=== PATIENT | male | born 1965 | race American Indian/Alaskan Native ===

== ENCOUNTER 2016-10-05 09:18 | Emergency (ER) | payer OTHER ==
[2016-10-05 09:58] VITALS: RESP 18; TEMP 99.6; O2SAT 96
[2016-10-05 10:08] VITALS: BMI 24.3
--- NOTE | 2016-10-05 10:11 | ED PDOC ---
Arrival/HPI - General Historian: Patient - History of Present Illness Time/Duration: Other (~17 hours) Symptom Onset: Sudden Symptom Course: Unchanged Quality: Throbbing Severity Level: 3 Activities at Onset: Other (grilling) Context: Home - General Chief Complaint: Abnormal Skin Integrity Time Seen by Provider: 10/05/16 10:10 - History of Present Illness Narrative History of Present Illness (Text): 50 M with PMH of HTN presents to ED with complaint of LLE laceration. Patient states it happened yesterday late afternoon while grilling. He bumped his leg on the grill grate that was on the ground and noticed he was bleeding. Patient rates pain 3-4/10. He describes it as a constant throbbing pain. Denies fever/ chills, cp, sob, abd pain, n/v/d. Tetatanus status unknown. (Lb Betts) Past Medical History - Provider Review Nursing Documentation Reviewed: Yes - Travel History Have you recently traveled outside [place] w/in the past 3 mons?: No - Cardiac Hx Cardiac Disorders: Yes Hx Hypertension: Yes - Pulmonary Hx Respiratory Disorders: No - Neurological Hx Neurological Disorder: No - HEENT Hx HEENT Disorder: No - Renal Hx Renal Disorder: No - Endocrine/Metabolic Hx Endocrine Disorders: No - Hematological/Oncological Hx Blood Disorders: No - Integumentary Hx Dermatological Disorder: No - Musculoskeletal/Rheumatological Hx Musculoskeletal Disorders: No - Gastrointestinal Hx Gastrointestinal Disorders: No - Genitourinary/Gynecological Hx Genitourinary Disorders: No - Psychiatric Hx Psychophysiologic Disorder: No Hx Substance Use: No - Surgical History Hx Tonsillectomy: Yes Other/Comment: Left knee. adenoidectomy Family/Social History - Physician Review Nursing Documentation Reviewed: Yes Family/Social History: Unknown Family HX Smoking Status: Never Smoked Hx Alcohol Use: Yes Hx Substance Use: No Allergies/Home Meds Allergies/Adverse Reactions: Allergies No Known Allergies Allergy (Verified 10/05/16 12:14) Home Medications: Home Meds Medication Instructions Recorded Confirmed hydroCHLOROthiazide [Microzide] 12.5 mg PO DAILY 10/05/16 10/05/16 Review of Systems - Review of Systems Constitutional: absent: Fatigue, Weight Change, Night Sweats Eyes: absent: Vision Changes, Photophobia, Eye Pain ENT: absent: Hearing Changes, Tinnitus Respiratory: absent: SOB, Cough, Sputum, Wheezing Cardiovascular: absent: Chest Pain, Palpitations Gastrointestinal: absent: Abdominal Pain, Constipation, Diarrhea, Nausea, Vomiting, Appetite Changes, Hematochezia, Hematemesis Genitourinary Male: absent: Dysuria, Frequency, Hematuria Musculoskeletal: absent: Arthralgias, Back Pain, Neck Pain, Joint Swelling Skin: Laceration (LLE 6 cm laceration, mutiple abrasions) Physical Exam Vital Signs Reviewed: Yes Temperature: Afebrile Blood Pressure: Normal Pulse: Regular Respiratory Rate: Normal Appearance: Positive for: Well-Appearing, Non-Toxic, Comfortable Pain Distress: Mild Mental Status: Positive for: Alert and Oriented X 3 - Systems Exam Head: Present: Atraumatic, Normocephalic Respiratory/Chest: Present: Clear to Auscultation, Good Air Exchange Cardiovascular: Present: Regular Rate and Rhythm, Normal S1, S2, Peripheal Pulses Present Lower Extremity: Present: NORMAL PULSES, Neurovascularly Intact, Capillary Refill < 2 s Neurological: Present: GCS=15 Skin: Present: Warm, Dry, Normal Color, Laceration (LLE 6 cm (anterior)), Abrasion (2 abrasions near laceration) Psychiatric: Present: Alert, Oriented x 3 Medical Decision Making ED Course and Treatment: Even though injury occurred more than 12 hours, patient is young, healthy, and nondiabetic. Six 4-0 polyamide sutures were placed in LLE. Bacitracin applied. Patient given TDAP vaccine. Rx for Bactrim to be taken for 7 days. Patient instructed to follow up with PMD or ED for suture removal in 7-10 days. ( Lb Betts) Patient seen and examined with resident Came up with treatment and disposition plan with resident (Eddi Hemphill) - Medication Orders Current Medication Orders: Discontinued Medications Lidocaine HCl (Lidocaine 1% (20ml)) Confirm Administered Dose 20 ml .ROUTE .STK- MED ONE Stop: 10/05/16 10:50 Tetanus/Reduced Diphtheria/Acell Pertussis (Boostrix Vaccine Inj) 0.5 ml IM .ONCE ONE Stop: 10/05/16 10:28 Last Admin: 10/05/16 11:20 Dose: 0.5 ml - Procedure PROCEDURE NOTE (Text): PROCEDURE: LACERATION REPAIR Performed by the emergency provider Location: Anterior lower leg, LLE Length: 6 cm Description: clean wound edges,no foreign bodies Distal CMS: Normal. No deficits. Neurovascularly intact. Anesthesia: Lidocaine 1% Preparation: The wound was cleaned with NS and Betadyne. The area was prepped and draped in the usual sterile fashion. Exploration: The wound was explored and no foreign bodies were found. Procedure: The wound was closed with 4-0 polyamide.~ There was appropriateapproximation. In total, 6 were used. Post-Procedure: Good closure and hemostasis. The patient tolerated the procedure well and there were no complications. Post procedure dressing applied. (Lb Betts) - PA / [employer]LECTRIC [employer]GAN [employer]ER / Resident Statement / has reviewed & agrees with the documentation as recorded. MD/ has examined the patient and agrees with the treatment plan. Disposition/Present on Arrival - Present on Arrival Any Indicators Present on Arrival: No History of DVT/PE: No History of Uncontrolled Diabetes: No Urinary Catheter: No History of Decub. Ulcer: No History Surgical Site Infection Following: None - Disposition Have Diagnosis and Disposition been Completed?: Yes Disposition Time: 11:15 Patient Plan: Discharge - Disposition Diagnosis: Laceration Disposition: HOME/ ROUTINE Condition: GOOD Discharge Instructions (ExitCare): Care For Your Stitches (ED), Laceration (ED) Additional Instructions: Thank you for letting us take care of you today. Your provider was Dr. Betts. You were treated for Leg Laceration. The emergency medical care you received today was directed at your acute symptoms. If you were prescribed any medication, please fill it and take as directed. It may take several days for your symptoms to resolve. Return to the Emergency Department if your symptoms worsen, do not improve, or if you have any other problems. Please contact your doctor or call one of the physicians/clinics you have been referred to that are listed on the Patient Visit Information form that is included in your discharge packet. Bring any paperwork you were given at discharge with you along with any medications you are taking to your follow up visit. Our treatment cannot replace ongoing medical care by a primary care provider (PCP) outside of the emergency department. Thank you for allowing the [facility] team to be part of your care today. If you had an X-Ray or CT scan: A Radiologist will review the ED reading if any change in treatment is needed we will contact you. If you had a blood, urine, or wound culture: It will take several days for the results, if any change in treatment is needed we will contact you. If you had an STI test: It will take 48 hours for the results. Please call after 1 week if you have not heard back. Take Bactrim DS by mouth twice per day for 7 days Keep are clean and dry Follow up with PMD or ED for suture removal in 7-10 days Please return to ED if symptoms persist or condition worsens Referrals: Anthony Jackson MD [Staff Provider] - Follow up with primary
[2016-10-05] MEDS ORDERED: TDAP Vaccine 0.5 mL Syr IM ONE (10:27)
[2016-10-05] MEDS ORDERED: Lidocaine 1% Inj (20ml) ONE (10:49)
[2016-10-05 12:11] VITALS: BP 135/79; PULSE 85
== END 2016-10-05 12:13 | disposition home or self-care (01) ==
LOC: ED 09:18
DX: S81.812A Laceration without foreign body, left lower leg, initial encounter (principal); W22.8XXA Striking against or struck by other objects, initial encounter; Y93.G2 Activity, grilling and smoking food; I10 Essential (primary) hypertension; Z23 Encounter for immunization

== ENCOUNTER 2016-10-12 06:42 | Emergency (ER) | payer OTHER ==
[2016-10-12 06:43] VITALS: BMI 33.0
[2016-10-12 07:02] VITALS: BP 99/54; PULSE 91; RESP 18; TEMP 98.9; O2SAT 99
--- NOTE | 2016-10-12 07:16 | ED PDOC ---
Arrival/HPI - General Chief Complaint: Suture/Staple Removal Time Seen by Provider: 10/12/16 07:06 Historian: Patient - History of Present Illness Narrative History of Present Illness (Text): 10/12/16 07:10 Betito Fletcher is a 50 year old male who presents to the emergency department for suture removal. Patient came to emergency department about a week ago with a laceration to his left lower extremity and received 6 stitches. Patient also received a tetanus shot and was discharged with antibiotics. At present, Patient states that he has kept up with his prescribed antibiotics with no discomfort to his wound. Patient denies any fevers, discharge, or any other complaint at this time. Time/Duration: 1 week Symptom Onset: Sudden Symptom Course: Resolved Activities at Onset: Light Context: Home Past Medical History - Provider Review Nursing Documentation Reviewed: Yes - Cardiac Hx Cardiac Disorders: Yes Hx Hypertension: Yes - Pulmonary Hx Respiratory Disorders: No - Neurological Hx Neurological Disorder: No - HEENT Hx HEENT Disorder: No - Renal Hx Renal Disorder: No - Endocrine/Metabolic Hx Endocrine Disorders: No - Hematological/Oncological Hx Blood Disorders: No - Integumentary Hx Dermatological Disorder: No - Musculoskeletal/Rheumatological Hx Musculoskeletal Disorders: No - Gastrointestinal Hx Gastrointestinal Disorders: No - Genitourinary/Gynecological Hx Genitourinary Disorders: No - Psychiatric Hx Psychophysiologic Disorder: No Hx Substance Use: No - Surgical History Hx Tonsillectomy: Yes Other/Comment: Left knee. adenoidectomy Family/Social History - Physician Review Nursing Documentation Reviewed: Yes Family/Social History: No Known Family HX Smoking Status: Never Smoked Hx Alcohol Use: Yes Frequency of alcohol use: Socially Hx Substance Use: No Allergies/Home Meds Allergies/Adverse Reactions: Allergies No Known Allergies Allergy (Verified 10/12/16 06:53) Home Medications: Home Meds Medication Instructions Recorded Confirmed hydroCHLOROthiazide [Microzide] 25 mg PO DAILY 10/05/16 10/12/16 Review of Systems - Physician Review All systems were reviewed & negative as marked: Yes - Review of Systems Constitutional: absent: Fevers, Night Sweats Eyes: absent: Vision Changes ENT: absent: Hearing Changes Respiratory: absent: SOB Cardiovascular: absent: Chest Pain Gastrointestinal: absent: Abdominal Pain Genitourinary Male: absent: Dysuria Musculoskeletal: absent: Arthralgias Skin: Laceration (Stitched laceration to lower LE). absent: Rash Neurological: absent: Headache Endocrine: absent: Diaphoresis Hemo/Lymphatic: absent: Adenopathy Psychiatric: absent: Anxiety Physical Exam Vital Signs Reviewed: Yes Vital Signs Temp Pulse Resp BP Pulse Ox 10/12/16 07:01 98.9 F 91 H 18 99/54 L 99 Temperature: Afebrile Blood Pressure: Hypotensive Pulse: Tachycardic Respiratory Rate: Normal Appearance: Positive for: Well-Appearing, Non-Toxic, Comfortable Pain Distress: None Mental Status: Positive for: Alert and Oriented X 3 - Systems Exam Head: Present: Atraumatic, Normocephalic Pupils: Present: PERRL Extroacular Muscles: Present: EOMI Conjunctiva: Present: Normal Mouth: Present: Moist Mucous Membranes Neck: Present: Normal Range of Motion Abdomen: No: Peritoneal Signs Lower Extremity: Present: NORMAL PULSES, Normal ROM. No: Edema, CALF TENDERNESS , Deformity Neurological: Present: GCS=15, Speech Normal Skin: Present: Laceration (to lower left extremity; no erythema; wound intact; [address]) Psychiatric: Present: Alert, Oriented x 3, Normal Insight, Normal Concentration Medical Decision Making ED Course and Treatment: 10/12/16 07:10 Impression: 50 year old male presents to the emergency department for suture removal. Plan: -- Suture Removal -- Discharge Prior Visits: Notes and results from previous visits were reviewed. Patient last seen in the ED on 10/05/16 for LLE laceration. Patient was discharged home. Progress Notes: 10/12/16 07:11 PROCEDURE: SUTURE REMOVAL Performed by the emergency provider Location: Anterior lower leg, LLE Length: 6 cm Distal CMS: Normal. No deficits. Neurovascularly intact. Preparation: The wound was cleaned with NS and Betadyne. The area was prepped and draped in the usual sterile fashion. Procedure: In total, 6 sutures were removed. Post-Procedure: Good closure and hemostasis. The patient tolerated the procedure well and there were no complications. CSM remains intact. - Scribe Statement The provider has reviewed the documentation as recorded by the Hireniblove Fonseca Provider Scribe Attestation: All medical record entries made by the Scribe were at my direction and personally dictated by me. I have reviewed the chart and agree that the record accurately reflects my personal performance of the history, physical exam, medical decision making, and the department course for this patient. I have also personally directed, reviewed, and agree with the discharge instructions and disposition. Disposition/Present on Arrival - Present on Arrival Any Indicators Present on Arrival: No History of DVT/PE: No History of Uncontrolled Diabetes: No Urinary Catheter: No History of Decub. Ulcer: No History Surgical Site Infection Following: None - Disposition Have Diagnosis and Disposition been Completed?: Yes Diagnosis: Visit for suture removal Disposition: HOME/ ROUTINE Disposition Time: 07:11 Condition: GOOD Additional Instructions: Return to ED if condition worsens. Warm water and soap to laceration. Forms: [facility] [employer] (Bulgarian)
== END 2016-10-12 07:15 | disposition home or self-care (01) ==
LOC: ED 06:42
DX: Z48.02 Encounter for removal of sutures (principal)

== ENCOUNTER 2017-02-12 07:30 | Emergency (ER) | payer OTHER ==
[2017-02-12 07:35] VITALS: BMI 23.6
[2017-02-12 07:41] VITALS: TEMP 99.3
[2017-02-12] MEDS ORDERED: Sodium Chloride 0.9% 1,000 ML IV STA (07:51)
--- NOTE | 2017-02-12 07:56 | ED PDOC ---
Arrival/HPI - General Time Seen by Provider: 02/12/17 07:30 Historian: Patient - History of Present Illness Narrative History of Present Illness (Text): 02/12/17 07:52 A 51 year old male with no significant past medical history, presents to the emergency department with sudden onset vomiting, diarrhea, and generalized weakness this morning. The patient states that he has been feeling diaphoretic and experiencing chills. The patient notes that he received his influenza vaccine this year. The patient denies fevers, headache, dizziness, chest pain, shortness of breath, dyspnea on exertion, cough, abdominal pain, nausea, back pain, neck pain, urinary/bowel changes, or any other complaint. Time/Duration: Other (This Morning) Symptom Onset: Sudden Symptom Course: Unchanged Activities at Onset: Light Context: Home Past Medical History - Provider Review Nursing Documentation Reviewed: Yes - Cardiac Hx Cardiac Disorders: Yes Hx Hypertension: Yes - Pulmonary Hx Respiratory Disorders: No - Neurological Hx Neurological Disorder: No - HEENT Hx HEENT Disorder: No - Renal Hx Renal Disorder: No - Endocrine/Metabolic Hx Endocrine Disorders: No - Hematological/Oncological Hx Blood Disorders: No - Integumentary Hx Dermatological Disorder: No - Musculoskeletal/Rheumatological Hx Musculoskeletal Disorders: No - Gastrointestinal Hx Gastrointestinal Disorders: No - Genitourinary/Gynecological Hx Genitourinary Disorders: No - Psychiatric Hx Psychophysiologic Disorder: No Hx Substance Use: No - Surgical History Hx Tonsillectomy: Yes Other/Comment: Left knee. adenoidectomy Family/Social History - Physician Review Nursing Documentation Reviewed: Yes Family/Social History: No Known Family HX Smoking Status: Never Smoked Hx Alcohol Use: Yes Hx Substance Use: No Allergies/Home Meds Allergies/Adverse Reactions: Allergies No Known Allergies Allergy (Verified 02/12/17 08:01) Home Medications: Home Meds Medication Instructions Recorded Confirmed No Known Home Med 02/12/17 02/12/17 Review of Systems - Physician Review All systems were reviewed & negative as marked: Yes - Review of Systems ENT: absent: Sore Throat Cardiovascular: absent: Chest Pain Gastrointestinal: Diarrhea, Vomiting. absent: Abdominal Pain, Nausea Genitourinary Male: absent: Urinary Output Changes Musculoskeletal: absent: Back Pain, Neck Pain Neurological: Other (Generalized Weakness). absent: Headache, Dizziness Physical Exam Vital Signs Reviewed: Yes Vital Signs Temp Pulse Resp BP Pulse Ox 02/12/17 12:12 98 H 18 144/69 98 02/12/17 09:32 96 H 18 143/89 98 02/12/17 07:30 99.3 F 111 H 20 155/92 H 99 Temperature: Afebrile Blood Pressure: Hypertensive Pulse: Tachycardic Respiratory Rate: Normal Appearance: Positive for: Well-Appearing, Non-Toxic Pain Distress: None Mental Status: Positive for: Alert and Oriented X 3 - Systems Exam Head: Present: Atraumatic, Normocephalic Pupils: Present: PERRL Extroacular Muscles: Present: EOMI Conjunctiva: Present: Normal Mouth: Present: Moist Mucous Membranes Neck: Present: Normal Range of Motion Respiratory/Chest: Present: Clear to Auscultation, Good Air Exchange. No: Respiratory Distress, Accessory Muscle Use Cardiovascular: Present: Regular Rate and Rhythm, Normal S1, S2. No: Murmurs Abdomen: Present: Normal Bowel Sounds. No: Tenderness, Distention, Peritoneal Signs Back: Present: Normal Inspection Upper Extremity: Present: Normal Inspection. No: Cyanosis, Edema Lower Extremity: Present: Normal Inspection. No: Edema Neurological: Present: GCS=15, CN II-XII Intact, Speech Normal Skin: Present: Warm, Dry, Normal Color. No: Rashes Psychiatric: Present: Alert, Oriented x 3, Normal Insight, Normal Concentration Medical Decision Making ED Course and Treatment: 02/12/17 07:57 Impression: A 51 year old male presents to the emergency department with a complaint of sudden onset vomiting, diarrhea, and generalized weakness that began this morning. Plan: -- EKG -- Chest X-ray -- Abdomen/Pelvis CT -- Labs -- Urinalysis -- Tylenol, Zofran, and IV Fluids -- Reassess and disposition Prior Visits: Notes and results from previous visits were reviewed. Patient was last seen in the emergency department on 10/12/2016. The patient was seen in the emergency department for suture removal. The patient was discharged home. Progress Notes: EKG: Ordered, reviewed, and independently interpreted the EKG. Rate : 101 BPM Rhythm : Sinus Tachycardia Interpretation : No St-T wave changes. CHEST X-RAY Dictator : Ginger Trent MD Report Date : 02/12/2017 09:04:25 IMPRESSION: No active pulmonary disease. CT Abdomen and Pelvis with contrast Dictator : Camden Gibbs MD Report Date : 02/12/2017 09:52:37 IMPRESSION: Mildly enlarged prostate. The study is otherwise unremarkable 02/13/17 07:26 pt reassesed sleeping innad. abd soft no ttp. tachycardia resolved. no sirs criteria - Lab Interpretations Lab Results: 02/12/17 08:00 02/12/17 08:00 Lab Results 02/12/17 11:42: Urine Color Yellow, Urine Appearance Clear, Urine pH 8.5, Ur Specific [place] 1.010, Urine Protein Negative, Urine Glucose (UA) Negative, Urine Ketones 15 H, Urine Blood Negative, Urine Nitrate Negative, Urine Bilirubin Negative, Urine Urobilinogen 1.0 H, Ur Leukocyte Esterase Negative 02/12/17 08:50: Influenza Typ A,B (EIA) Negative for flu a/b 02/12/17 08:00: Sodium 139, Potassium 4.5, Chloride 103, Carbon Dioxide 25, Anion Gap 16, BUN 14, Creatinine 1.1, Est GFR ( Amer) > 60, Est GFR (Non- Af Amer) > 60, Random Glucose 109, Calcium 10.3, Magnesium 1.8, Total Bilirubin 1.3, AST 38, ALT 30, Alkaline Phosphatase 63, Lactate Dehydrogenase 416, Total Creatine Kinase 79, Troponin I < 0.01, NT-Pro-B Natriuret Pep 30.4, Total Protein 8.4 H, Albumin 5.0 H, Globulin 3.5, Albumin/Globulin Ratio 1.4, Lipase 91 02/12/17 08:00: PT 10.5, INR 0.96, APTT 31.9, D-Dimer, Quantitative < 200 02/12/17 08:00: WBC 7.7 D, RBC 4.94, Hgb 17.0, Hct 48.1, MCV 97.4, MCH 34.4, MCHC 35.3, RDW 12.5, Plt Count 199, MPV 9.3, Gran % 91.7 H, Lymph % (Auto) 4.6 L , [place] % (Auto) 3.3, Eos % (Auto) 0.3 L, Baso % (Auto) 0.1, Gran # 7.06 H, Lymph # 0.4 L, [place] # 0.3, Eos # 0.0, Baso # 0.01, Neutrophils % (Manual) 92 H, Band Neutrophils % 1, Lymphocytes % (Manual) 5 L, Monocytes % (Manual) 2, Platelet Evaluation Normal I have reviewed the lab results: Yes - RAD Interpretation Radiology Orders: 02/12/17 07:51 CHEST PORTABLE [RAD] Stat 02/12/17 08:57 ABD & PELVIS IV CONTRAST ONLY [CT] Stat - EKG Interpretation Interpreted by ED Physician: Yes Type: 12 lead EKG - Medication Orders Current Medication Orders: Discontinued Medications Acetaminophen (Tylenol 325mg Tab) 975 mg PO STAT STA Stop: 02/12/17 07:51 Last Admin: 02/12/17 08:06 Dose: 975 mg Re-Assess: MAR Pain/Vitals Document 02/12/17 09:06 SRE (Rec: 02/12/17 09:57 SRE [id number]) Pain Reassessment Is This A Pain ReAssessment? Yes Sodium Chloride (Sodium Chloride 0.9%) 1,000 mls @ 999 mls/hr IV .Q1H1M STA Stop: 02/12/17 08:51 Last Admin: 02/12/17 08:01 Dose: 999 mls/hr eMAR Start Stop Document 02/12/17 08:01 SRE (Rec: 02/12/17 08:02 SRE [id number]) Intravenous Solution Start Date 02/12/17 Start Time 08:01 End Date 02/12/17 End time 09:00 Total Infusion Time 59 Ondansetron HCl (Zofran Inj) 4 mg IVP STAT STA Stop: 02/12/17 07:52 Last Admin: 02/12/17 08:06 Dose: 4 mg IVP Administration Document 02/12/17 08:06 SRE (Rec: 02/12/17 08:06 SRE [id number]) Charges for Administration # of IVP Administrations 1 - Scribe Statement The provider has reviewed the documentation as recorded by the Willie Parr Provider Scribe Attestation: All medical record entries made by the Scribe were at my direction and personally dictated by me. I have reviewed the chart and agree that the record accurately reflects my personal performance of the history, physical exam, medical decision making, and the department course for this patient. I have also personally directed, reviewed, and agree with the discharge instructions and disposition. Disposition/Present on Arrival - Present on Arrival Any Indicators Present on Arrival: No History of DVT/PE: No History of Uncontrolled Diabetes: No Urinary Catheter: No History Surgical Site Infection Following: None - Disposition Have Diagnosis and Disposition been Completed?: Yes Diagnosis: Viral syndrome, Vomiting Disposition: HOME/ ROUTINE Disposition Time: 11:00 Condition: STABLE Discharge Instructions (ExitCare): Acute Nausea and Vomiting (ED), Viral Syndrome (ED) Additional Instructions: please follow up with your doctor. return to er with worsening symptoms or concernrs. Referrals: [facility] [Outside] - Follow up with primary [facility] [place]] - Follow up with primary Praveen Apple MD [Staff Provider] - Follow up with primary Forms: [employer] (Samoan)
[2017-02-12 08:08] LABS: BASO # 0.01 K/mm3 (0.0-2.0); BASO % 0.1 % (0.0-3.0); EOS % 0.3 % (1.5-5.0); GRAN # 7.06 (1.4-6.5); GRAN % 91.7 % (50.0-68.0); HEMATOCRIT 48.1 % (42.0-52.0); LYMPH # 0.4 (1.2-3.4); LYMPH % 4.6 % (22.0-35.0); MEAN CELL VOLUME 97.4 fl (80.0-105.0); MEAN CORPUSCULAR HEMOGLOBIN 34.4 pg (25.0-35.0); MEAN CORPUSCULAR HGB CONC 35.3 g/dl (31.0-37.0); MEAN PLATELET VOLUME 9.3 fl (7.0-11.0); MONO # 0.3 (0.1-0.6); MONO % 3.3 % (1.0-6.0); PLATELET COUNT 199 10^3/uL (120.0-450.0); RED CELL DISTRIBUTION WIDTH 12.5 % (11.5-14.5); WHITE BLOOD COUNT 7.7 10^3/ul (4.5-11.0)
[2017-02-12 08:20] LABS: ALB/GLOB RATIO 1.4 (1.1-1.8); ALKALINE PHOSPHATASE 63 U/L (38-126); ALT/SGPT 30 U/L (7-56); AST/SGOT 38 U/L (17-59); BILIRUBIN,TOTAL 1.3 mg/dL (0.2-1.3); BLOOD UREA NITROGEN 14 mg/dL (7-21); CALCIUM 10.3 mg/dL (8.4-10.5); CARBON DIOXIDE 25 mmol/L (21-33); CHLORIDE 103 mmol/L (98-107); GFR AFRICAN-AMERICAN > 60; GLUCOSE,RANDOM 109 mg/dL (70-110); LIPASE 91 U/L (23-300); MAGNESIUM 1.8 mg/dL (1.7-2.2); POTASSIUM 4.5 mmol/L (3.6-5.0); SODIUM 139 mmol/L (132-148); TOTAL PROTEIN 8.4 g/dL (5.8-8.3)
[2017-02-12 08:30] LABS: INR 0.96 (0.93-1.08); PARTIAL THROMBOPLASTIN TIME 31.9 Seconds (25.1-36.5)
[2017-02-12 08:32] LABS: TROPONIN I < 0.01 ng/mL
[2017-02-12 08:35] LABS: BAND 1 % (0-2); NEUTROPHIL 92 % (50.0-70.0)
[2017-02-12 08:36] LABS: PLATELET ESTIMATE NORMAL (NORMAL)
[2017-02-12 08:46] LABS: D DIMER < 200 ng/mL (0-243)
[2017-02-12] MEDS ORDERED: Iohexol 350 MG/100 ML VIAL ONE (09:02)
--- NOTE | 2017-02-12 09:05 | RAD ---
HISTORY: sob COMPARISON: 04/09/2015 FINDINGS: LUNGS: The lungs are well inflated and clear. PLEURA: No significant pleural effusion identified, no pneumothorax apparent. CARDIOVASCULAR: Normal. OSSEOUS STRUCTURES: No significant abnormalities. VISUALIZED UPPER ABDOMEN: Normal. OTHER FINDINGS: None. IMPRESSION: No active pulmonary disease.
[2017-02-12 09:34] VITALS: RESP 18; O2SAT 98
--- NOTE | 2017-02-12 09:54 | CT ---
PROCEDURE: CT Abdomen and Pelvis with contrast HISTORY: abd pain, vomiting COMPARISON: None. TECHNIQUE: Contrast dose: 100 cc of Omni 350 Radiation dose: Total exam DLP = 439 mGy-cm. This CT exam was performed using one or more of the following dose reduction techniques: Automated exposure control, adjustment of the mA and/or kV according to patient size, and/or use of iterative reconstruction technique. FINDINGS: LOWER THORAX: Unremarkable. LIVER: Unremarkable. No gross lesion or ductal dilatation. GALLBLADDER AND BILE DUCTS: Unremarkable. PANCREAS: Unremarkable. No gross lesion or ductal dilatation. SPLEEN: Unremarkable. ADRENALS: Unremarkable. No mass. KIDNEYS AND URETERS: Unremarkable. No hydronephrosis. No solid mass. VASCULATURE: Unremarkable. No aortic aneurysm. BOWEL: Unremarkable. No obstruction. No gross mural thickening. APPENDIX: Normal appendix. PERITONEUM: Unremarkable. No free fluid. No free air. LYMPH NODES: Unremarkable. No enlarged lymph nodes. BLADDER: Unremarkable. REPRODUCTIVE: The prostate is enlarged measuring 67 mm transversely BONES: No acute fracture. OTHER FINDINGS: None. IMPRESSION: Mildly enlarged prostate. The study is otherwise unremarkable
[2017-02-12 11:45] LABS: PH,URINE 8.5 (4.7-8.0); URINE APPEARANCE CLEAR (CLEAR); URINE BILIRUBIN NEGATIVE (NEGATIVE); URINE BLOOD NEGATIVE (NEGATIVE); URINE COLOR YELLOW (YELLOW); URINE GLUCOSE (UA) NEGATIVE (NEGATIVE); URINE KETONE 15 mg/dL (NEGATIVE); URINE LEUKOCYTE ESTERASE NEGATIVE Leu/uL (NEGATIVE); URINE PROTEIN NEGATIVE mg/dL (<30 mg/dL)
[2017-02-12 12:14] VITALS: BP 144/69; PULSE 98
--- NOTE | 2017-02-12 17:34 | CARD ---
APPROVED REPORT EKG Measurement Heart [id number] <Conclusion> Sinus tachycardia Otherwise normal ECG
== END 2017-02-12 12:14 | disposition home or self-care (01) ==
LOC: ED 07:30
DX: B34.9 Viral infection, unspecified (principal); R11.10 Vomiting, unspecified; I10 Essential (primary) hypertension
CPT/HCPCS: 71010; 74177; 80053; 81003; 82550; 83615; 83690; 83735; 83880; 84484; 85025; 85378; 85610; 85730; 87804; 93005; 96361; 96374; 99284; J2405; J7040; Q9967

== ENCOUNTER 2017-08-03 06:56 | Emergency (ER) | payer OTHER ==
[2017-08-03 06:56] VITALS: BMI 33.0
--- NOTE | 2017-08-03 07:28 | ED PDOC ---
Arrival/HPI - General Chief Complaint: Finger,Hand,&Wrist Time Seen by Provider: 08/03/17 07:12 Historian: Patient - History of Present Illness Narrative History of Present Illness (Text): 08/03/17 07:22 Betito Fletcher is a 51 year old male who presents to the emergency department complaining of worsening redness to his left thumb for 5 days and swelling with associated throbbing yesterday. Patient denies any drainage or any other complaints at this time. Time/Duration: < week Symptom Onset: Gradual Symptom Course: Worsening Activities at Onset: Light Context: Home Past Medical History - Provider Review Nursing Documentation Reviewed: Yes - Cardiac Hx Cardiac Disorders: Yes Hx Hypertension: Yes - Pulmonary Hx Respiratory Disorders: No - Neurological Hx Neurological Disorder: No - HEENT Hx HEENT Disorder: No - Renal Hx Renal Disorder: No - Endocrine/Metabolic Hx Endocrine Disorders: No - Hematological/Oncological Hx Blood Disorders: No - Integumentary Hx Dermatological Disorder: No - Musculoskeletal/Rheumatological Hx Musculoskeletal Disorders: No - Gastrointestinal Hx Gastrointestinal Disorders: No - Genitourinary/Gynecological Hx Genitourinary Disorders: No - Psychiatric Hx Psychophysiologic Disorder: No Hx Substance Use: No - Surgical History Hx Orthopedic Surgery: Yes (l knee) Hx Tonsillectomy: Yes Other/Comment: Left knee. adenoidectomy - Anesthesia Hx Anesthesia: Yes Hx Anesthesia Reactions: No Hx Malignant Hyperthermia: No Family/Social History - Physician Review Nursing Documentation Reviewed: Yes Family/Social History: No Known Family HX Smoking Status: Never Smoked Hx Alcohol Use: Yes Frequency of alcohol use: Socially Hx Substance Use: No Allergies/Home Meds Allergies/Adverse Reactions: Allergies No Known Allergies Allergy (Verified 08/03/17 07:51) Review of Systems - Review of Systems Constitutional: absent: Fevers, Night Sweats Eyes: absent: Vision Changes ENT: absent: Hearing Changes Respiratory: absent: SOB, Cough Cardiovascular: absent: Chest Pain, SNYDER Gastrointestinal: absent: Abdominal Pain, Nausea Musculoskeletal: absent: Arthralgias, Back Pain, Neck Pain, Joint Swelling, Myalgias Skin: Cellulitis, Other (Redness and swelling to left thumb) Neurological: absent: Headache, Dizziness, Focal Weakness Endocrine: absent: Diaphoresis Hemo/Lymphatic: absent: Adenopathy Psychiatric: absent: Anxiety, Depression Physical Exam - Physical Exam Narrative Physical Exam (Text): Head: Atraumatic. Eyes: EOMI. Conjunctivae are not pale. ENT: Mucous membranes are moist and intact. Neck: No meningeal signs. Cardiovascular: Regular rate. Regular rhythm. Cap refill less than 2 seconds. Pulmonary/Chest: No evidence of respiratory distress. Extremities: Full range of motion and PIP/DIP/MCP joints of left hand with no ligamentous laxity, no pain with passive or active ROM of the digits Skin: Erythema and edema noted to proximal nail fold, mild swelling of distal first left digit. Erythema does not extend beyond IP joint. No streaking noted. Neurological: Median/radial/ulnar motor and sensory function intact. Psychiatric: Good eye contact. Normal interaction, affect, and behavior. Vital Signs Reviewed: Yes Vital Signs Temp Pulse Resp BP Pulse Ox 08/03/17 07:47 98.9 F 08/03/17 07:45 87 18 178/116 H 100 Temperature: Afebrile Blood Pressure: Hypertensive Pulse: Regular Respiratory Rate: Normal Appearance: Positive for: Well-Appearing, Non-Toxic, Uncomfortable Pain Distress: Moderate Medical Decision Making ED Course and Treatment: 08/03/17 07:29 Impression: 51 year old male complaining of worsening redness to his left thumb for 5 days and swelling with associated throbbing yesterday. Differential Diagnosis included but are not limited to: Cellulitis, paronychia Plan: -- Reassess and disposition Prior Visits: Notes and results from previous visits were reviewed. Patient was last seen in the emergency department on 02/12/17 for sudden onset vomiting, diarrhea, and generalized weakness. Patient was discharged home. Progress Notes: Patient with localized erythema to distal left thumb. No streaking. No fevers. No joint pain. Patient denies trauma. Patient denies biting nails. No bony tenderness noted. Erythema and swelling is mild, however given increase in pain and localized erythema noted, procedure performed to assess for drainage/pus. Under sterile conditions, and after explaining procedure to patient in laymen's terms, confirming site and identification, patient had area cleansed with betadine, with No. 15 scalpel blade, 1cm area of proximal nail fold lifted with drainage of less than 1ml of purulent drainage. Patient tolerated procedure well with minimal discomfort. Area post-procedure irrigated with normal saline and dressing applied. He will be prescribed antibiotics and pain medication, risks and side effects of prescribed medication reviewed. Currently no streaking or joint pain or fevers or systemic symptoms. BP elevated, but he has prior history of hypertension and I feel is somewhat exacerbated by pain. No headache or chest pain or shortness of breath. Stressed need for BP recheck by his PMD or ER later this week, return to ER for any new or worsening symptoms. Instructions provided directly to patient in laymen's terms. - Medication Orders Current Medication Orders: Tramadol HCl (Ultram) 50 mg PO STAT STA Stop: 08/03/17 08:12 - Scribe Statement The provider has reviewed the documentation as recorded by the Willie Fonseca Provider Scribe Attestation: All medical record entries made by the Willie were at my direction and personally dictated by me. I have reviewed the chart and agree that the record accurately reflects my personal performance of the history, physical exam, medical decision making, and the department course for this patient. I have also personally directed, reviewed, and agree with the discharge instructions and disposition. Disposition/Present on Arrival - Present on Arrival Any Indicators Present on Arrival: No History of DVT/PE: No History of Uncontrolled Diabetes: No Urinary Catheter: No History of Decub. Ulcer: No History Surgical Site Infection Following: None - Disposition Have Diagnosis and Disposition been Completed?: Yes Diagnosis: Paronychia Disposition: HOME/ ROUTINE Disposition Time: 08:00 Patient Plan: Discharge Patient Problems: Current Active Problems Problem Status Onset Paronychia Acute Condition: GOOD Discharge Instructions (ExitCare): Paronychia (DC) Additional Instructions: For any persistent or increase in redness, any return of any swelling or pain, any persistent or worsening of symptoms, get rechecked. Take antibiotics as directed. For any fever or increase in redness get rechecked immediately. Follow-up in 1-2 days to have wound rechecked. Have your blood pressure rechecked by your physician in 1-2 days. For any headaches, chest pain, shortness of breath, get rechecked. Prescriptions: Sulfamethoxazole/Trimethoprim [Bactrim DS 800 mg-160 mg] 1 tab PO BID #14 tab traMADol [Ultram] 25 mg PO BID PRN #4 tab PRN Reason: Pain, Severe (8-10) Forms: [facility] ([place]), WORK NOTE
[2017-08-03 09:52] VITALS: BP 166/119; PULSE 73; RESP 17; TEMP 98.4; O2SAT 94
== END 2017-08-03 09:52 | disposition home or self-care (01) ==
LOC: ED 06:56
DX: L03.012 Cellulitis of left finger (principal)

== ENCOUNTER 2018-04-28 06:49 | Outpatient (CLI) | payer OTHER | END 2018-04-28 06:50 | disposition home or self-care (01) | LOC: RAD 06:49 ==